=== PATIENT | male | born 1965 | race Caucasian/White ===

== ENCOUNTER 2017-04-19 23:51 | Emergency (ER) | payer OTHER ==
[2017-04-20] MEDS ORDERED: KETOROLAC TROMETHAMINE 30 MG/ML SOL IM ONE (00:08)
[2017-04-20] MEDS ORDERED: KETOROLAC TROMETHAMINE 30 MG/ML SOL ONE (00:08)
[2017-04-20 00:36] VITALS: BP 149/76; PULSE 59; RESP 20; TEMP 97.4; O2SAT 98
== END 2017-04-20 00:48 | disposition home or self-care (01) | DRG 103 ==
LOC: ED 23:51
DX: R51 Headache (principal)
CPT/HCPCS: 96372; 99282; 99283; J1885